=== PATIENT | female | born 1975 | race Caucasian/White ===

== ENCOUNTER 2016-09-05 11:17 | Emergency (ER) | payer OTHER ==
--- NOTE | 2016-09-05 11:56 | ER Document Report ---
ED Medical Screen (RME) - General Stated Complaint: CHEST/SINUS CONGESTION Mode of Arrival: Ambulatory Information source: Patient Notes: 41-year-old female presents to the emergency department complaining of cough and congestion. Denies fever, difficulty breathing or swallowing. TRAVEL OUTSIDE OF THE [place] IN LAST 30 DAYS: No - Related Data Allergies/Adverse Reactions: No Known Allergies Allergy (Verified 09/05/16 11:52) Past Medical History - Social History Chew tobacco use (# tins/day): No Frequency of alcohol use: None Drug Abuse: None Renal/ Medical History: Denies: Hx Peritoneal Dialysis Past Surgical History: Reports: Hx Hysterectomy - Immunizations Hx Diphtheria, Pertussis, Tetanus Vaccination: Yes Physical Exam - Vital signs Vitals: Temp Pulse BP Pulse Ox 98.0 F 68 122/85 98 09/05/16 11:43 09/05/16 11:43 09/05/16 11:43 09/05/16 11:43 - General General appearance: Appears well, Alert In distress: None - Respiratory Respiratory status: No respiratory distress Breath sounds: Normal Course - Vital Signs Vital signs: Temp Pulse Resp BP Pulse Ox 98.0 F 68 122/85 98 09/05/16 11:43 09/05/16 11:43 09/05/16 11:43 09/05/16 11:43
--- NOTE | 2016-09-05 12:13 | ER Document Report ---
HPI - HPI Patient complains to provider of: cold symptoms and right elbow pain Onset: Other - 4 days Onset/Duration: Gradual Pain Level: 3 Context: 41-year-old nonsmoking female complaining of right elbow pain since doing a lot of pushups because she is trying to get in the [employer]. Also she is complaining of head congestion and cough in the morning for 4 days. No fever or chills. No nausea vomiting or diarrhea. No chest pain or shortness of breath. No abdominal pain. Associated Symptoms: None Exacerbated by: Other - The elbow area hurts more with pushups Relieved by: Denies - ROS ROS below otherwise negative: Yes Systems Reviewed and Negative: Yes All other systems reviewed and negative - REPRODUCTIVE Reproductive: DENIES: : - DERM Skin Color: Normal Past Medical History - General Information source: Patient - Social History Smoking Status: Never Smoker Chew tobacco use (# tins/day): No Frequency of alcohol use: None Drug Abuse: None Family History: Reviewed & Not Pertinent Patient has suicidal ideation: No Patient has homicidal ideation: No - Medical History Medical History: Negative Renal/ Medical History: Denies: Hx Peritoneal Dialysis Surgical Hx: Negative Past Surgical History: Reports: Hx Hysterectomy - Immunizations Hx Diphtheria, Pertussis, Tetanus Vaccination: Yes Vertical Provider Document - CONSTITUTIONAL Agree With Documented VS: Yes Exam Limitations: No Limitations - INFECTION CONTROL TRAVEL OUTSIDE OF THE [place] IN LAST 30 DAYS: No - HEENT HEENT: Normocephalic, PERRLA, Pharyngeal Erythema - Minimal. negative: Conjuctival Injection, Tympanic Membrane Red, Tympanic Membrane Bulging - NECK Neck: Supple. negative: Lymphadenopathy-Left, Lymphadenopathy-Right - RESPIRATORY Respiratory: Breath Sounds Normal, No Respiratory Distress O2 Sat by Pulse Oximetry: 98 - CARDIOVASCULAR Cardiovascular: Regular Rate, Regular Rhythm - GI/ABDOMEN Gastrointestinal: Abdomen Soft, Abdomen Non-Tender, No Organomegaly - BACK Back: Normal Inspection - MUSCULOSKELETAL/EXTREMETIES Musculoskeletal/Extremeties: MAEW, FROM, Tender - Tricep tendon at the medial elbow - NEURO Level of Consciousness: Awake, Alert Motor/Sensory: No Motor Deficit, No Sensory Deficit - DERM Integumentary: Warm, Dry, No Rash Course - Vital Signs Vital signs: Temp Pulse Resp BP Pulse Ox 98.0 F 68 122/85 98 09/05/16 11:43 09/05/16 11:43 09/05/16 11:43 09/05/16 11:43 Discharge - Discharge Clinical Impression: Tendonitis Upper respiratory infection Qualifiers: URI type: unspecified viral URI Qualified Code(s): J06.9 - Acute upper respiratory infection, unspecified; B97.89 - Other viral agents as the cause of diseases classified elsewhere Condition: Good Disposition: HOME, SELF-CARE Instructions: Acetaminophen, Upper Respiratory Illness ([facility]), Tendonitis ([facility]) , Anti-Inflammatory Medication ([facility]) Additional Instructions: Coolmist humidifier, wash it daily Elbow strap from pharmacy may help Rest Motrin for the tendon inflammation Return to the emergency room if worse Please complete the patient satisfaction survey if you get one, and return it.. If you do not receive a survey, then you can go to the [facility] website, [email or web address] and place your comments about your very good care. Thank you very much. It was a pleasure being your medical provider today. Prescriptions: Ibuprofen [Motrin 800 mg Tablet] 800 mg PO Q8HP PRN #30 tablet PRN Reason:
[2016-09-05 12:31] VITALS: BP 120/80
== END 2016-09-05 12:27 | disposition home or self-care (01) ==
LOC: ER 11:17
DX: J06.9 Acute upper respiratory infection, unspecified (principal); B97.89 Other viral agents as the cause of diseases classified elsewhere; M77.9 Enthesopathy, unspecified; M25.521 Pain in right elbow; R05 Cough
CPT/HCPCS: 99283

== ENCOUNTER 2019-01-20 17:39 | Observation (INO) | payer OTHER ==
[2019-01-20] MEDS ORDERED: ONDANSETRON 4 MG TAB.RAPDIS PO ONE (19:00)
--- NOTE | 2019-01-20 19:00 | ER Document Report ---
ED Medical Screen (RME) - General Chief Complaint: Abdominal Pain Stated Complaint: ABDOMINAL PAIN/NAUSEA Time Seen by Provider: 01/20/19 18:58 Mode of Arrival: Ambulatory Information source: Patient Notes: Patient is a 43-year-old female presents the emergency department with upper abdominal pain that is been ongoing for approximately 4 days. She reports severe nausea with this but denies any vomiting or diarrhea. Patient reports she has been taking Pepto-Bismol which has provided some mild relief but has now turned her stools dark. She denies any blood in her stools. Patient does not believe she has had a fever. Exam: Tenderness to palpation to upper abdomen/epigastric area. I have greeted and performed a rapid initial assessment of this patient. A comprehensive ED assessment and evaluation of the patient, analysis of test results and completion of the medical decision making process will be conducted by additional ED providers. Dictation of this chart was performed using voice recognition software; therefore, there may be some unintended grammatical errors. TRAVEL OUTSIDE OF THE [place] IN LAST 30 DAYS: No - Related Data Allergies/Adverse Reactions: No Known Allergies Allergy (Verified 01/20/19 18:09) Past Medical History Renal/ Medical History: Denies: Hx Peritoneal Dialysis Past Surgical History: Reports: Hx Hysterectomy - Immunizations Hx Diphtheria, Pertussis, Tetanus Vaccination: Yes Physical Exam - Vital signs Vitals: Temp Pulse Resp BP Pulse Ox 98.0 F 80 18 130/96 H 99 01/20/19 18:57 01/20/19 18:57 01/20/19 18:57 01/20/19 18:57 01/20/19 18:57 Course - Vital Signs Vital signs: Temp Pulse Resp BP Pulse Ox 98.0 F 80 18 130/96 H 99 01/20/19 18:57 01/20/19 18:57 01/20/19 18:57 01/20/19 18:57 01/20/19 18:57
--- NOTE | 2019-01-20 19:40 | RADIOLOGY REPORT (SQ) ---
EXAM DESCRIPTION: KUB/ABDOMEN (SINGLE VIEW) COMPLETED DATE/TIME: 01/20/2019 7:19 pm REASON FOR STUDY: abd pain COMPARISON: None. NUMBER OF VIEWS: One view. TECHNIQUE: Supine radiographic image of the abdomen acquired. LIMITATIONS: None. FINDINGS: BOWEL GAS PATTERN: Normal bowel gas pattern. No dilated loops. CALCIFICATIONS: No suspicious calcifications. SOFT TISSUES: No gross mass or suggestion of organomegaly. HARDWARE: BTL clips. BONES: No acute fracture. No worrisome bone lesions. OTHER: No other significant finding. IMPRESSION: NO RADIOGRAPHIC EVIDENCE FOR ACUTE ABDOMINAL DISEASE. TECHNICAL DOCUMENTATION: JOB ID: [id number] [employer]- All Rights Reserved Reading location - IP/workstation name: [email or web address]
[2019-01-20 20:56] LABS: ABSOLUTE BASOPHILS # (AUTO) 0.1 10^3/uL (0.0-0.2); ABSOLUTE MONOCYTES (AUTO) 0.7 10^3/uL (0.1-1.4); BASOPHILS % (AUTO) 0.7 % (0-2); HEMOGLOBIN 12.9 g/dL (12.0-15.5); RED CELL DISTRIBUTION WIDTH 13.7 % (11.5-14.0); TOTAL CELLS COUNTED % (AUTO) 100 %
[2019-01-20 21:03] LABS: APPEARANCE,URINE CLEAR; BILIRUBIN,URINE NEGATIVE (NEGATIVE); COLOR,URINE STRAW; GLUCOSE, URINE NEGATIVE (NEGATIVE); KETONES,URINE NEGATIVE (NEGATIVE); LEUKOCYTE ESTERASE,URINE NEGATIVE (NEGATIVE); NITRITE,URINE NEGATIVE (NEGATIVE); PROTEIN,URINE NEGATIVE (NEGATIVE); URINE SPECIFIC GRAVITY 1.004; UROBILINOGEN,URINE NEGATIVE mg/dL (<2.0)
[2019-01-20 21:04] LABS: ABSOLUTE EOSINOPHILS # (AUTO) 0.2 10^3/uL (0.0-0.6); ABSOLUTE LYMPHOCYTES (AUTO) 3.4 10^3/uL (0.5-4.7); EOSINOPHILS % (AUTO) 1.4 % (0-6); HEMATOCRIT 37.8 % (36.0-47.0); LYMPHOCYTES % (AUTO) 29.9 % (13-45); MEAN CORPUSCULAR HEMOGLOBIN 29.4 pg (27.0-33.4); MEAN CORPUSCULAR HGB CONC 34.1 g/dL (32.0-36.0); MEAN CORPUSCULAR VOLUME 86 fl (80-97); MONOCYTES % (AUTO) 6.2 % (3-13); PLATELET COUNT 355 10^3/uL (150-450); RED BLOOD COUNT 4.38 10^6/uL (3.72-5.28); SEGMENTED NEUTROPHILS % (AUTO) 61.8 % (42-78); WHITE BLOOD COUNT 11.4 10^3/uL (4.0-10.5)
[2019-01-20 21:23] LABS: ALANINE AMINOTRANSFERASE 30 U/L (9-52); ALBUMIN 4.3 g/dL (3.5-5.0); ALKALINE PHOSPHATASE 69 U/L (38-126); ANION GAP 11 (5-19); ASPARTATE AMINO TRANSFERASE 24 U/L (14-36); BILIRUBIN,DIRECT 0.2 mg/dL (0.0-0.4); BILIRUBIN,TOTAL 0.6 mg/dL (0.2-1.3); BLOOD UREA NITROGEN 5 mg/dL (7-20); CALCIUM 10.3 mg/dL (8.4-10.2); CARBON DIOXIDE 26 mmol/L (22-30); CHLORIDE 102 mmol/L (98-107); GLUCOSE 92 mg/dL (75-110); POTASSIUM 3.9 mmol/L (3.6-5.0); SODIUM 138.9 mmol/L (137-145); TOTAL PROTEIN 7.5 g/dL (6.3-8.2)
--- NOTE | 2019-01-21 01:36 | ER Document Report ---
ED GI/ - General Chief Complaint: Abdominal Pain Stated Complaint: ABDOMINAL PAIN/NAUSEA Time Seen by Provider: 01/20/19 18:58 Primary Care Provider: KATELYNN OVALLES MD [Primary Care Provider] - Follow up as needed Mode of Arrival: Ambulatory Notes: This is a 43-year-old female patient emergency department chief complaint epigastric and right upper quadrant pain. Symptoms have been present on and off for about 2 days. Got worse today after eating. No prior history of gallstones. Has a burning sensation in the epigastric and right upper quadrant region. No fever. Some nausea but that has since resolved. Denies any black tarry stools but does state her stool is dark because she has been "drinking Pepto like crazy". TRAVEL OUTSIDE OF THE [place] IN LAST 30 DAYS: No - HPI Patient complains to provider of: Abdominal pain Quality of pain: Achy Severity at maximum: Moderate Severity in ED: Moderate Pain Level: 3 - Related Data Allergies/Adverse Reactions: No Known Allergies Allergy (Verified 01/20/19 18:09) Past Medical History - General Information source: Patient - Social History Smoking Status: Never Smoker Frequency of alcohol use: None Drug Abuse: None Lives with: Family Family History: Reviewed & Not Pertinent Patient has suicidal ideation: No Patient has homicidal ideation: No - Medical History Medical History: Negative Renal/ Medical History: Denies: Hx Peritoneal Dialysis Past Surgical History: Reports: Hx Hysterectomy - Immunizations Hx Diphtheria, Pertussis, Tetanus Vaccination: Yes Review of Systems - Review of Systems Notes: Constitutional: denies: Chills, Diaphoresis, Fever, Malaise, Weakness EENT: denies: Eye discharge, Blurred vision, Tearing, Double vision, Nose congestion, Nose discharge, Throat swelling, Mouth pain Cardiovascular: denies: Palpitations, Heart racing, Orthopnea, Dyspnea, Chest pain Respiratory: denies: Cough, Hurts to breathe, Wheezing, Shortness of breath Gastrointestinal: Planing of epigastric and right upper quadrant abdominal pain with nausea. Genitourinary: denies: Burning, Dysuria, Discharge, Frequency, Flank pain, Hematuria Musculoskeletal: denies: Joint pain, Joint swelling, Muscle pain, Muscle stiffness, back pain Hematologic/Lymphatic: denies: Anemia, Easy bleeding, Easy bruising, Blood clots Neurological/Psychological: denies: Confusion, Dementia, Depression, Loss of consciousness Skin: No lesions, no masses, no skin breakdown, no abscesses Physical Exam - Vital signs Vitals: Temp Pulse Resp BP Pulse Ox 98.0 F 80 18 130/96 H 99 01/20/19 18:57 01/20/19 18:57 01/20/19 18:57 01/20/19 18:57 01/20/19 18:57 Interpretation: Normal - General General appearance: Appears well, Alert - HEENT Head: Normocephalic, Atraumatic Eyes: Normal Pupils: PERRL - Respiratory Respiratory status: No respiratory distress Chest status: Nontender Breath sounds: Normal Chest palpation: Normal - Cardiovascular Rhythm: Regular Heart sounds: Normal auscultation Murmur: No - Abdominal Inspection: Normal Distension: No distension Bowel sounds: Normal Tenderness: Tender - Or tenderness to palpation in the epigastric and right upper quadrant region without guarding or rebound. Organomegaly: No organomegaly - Back Back: Normal, Nontender - Extremities General upper extremity: Normal inspection, Nontender, Normal color, Normal ROM, Normal temperature General lower extremity: Normal inspection, Nontender, Normal color, Normal ROM, Normal temperature, Normal weight bearing. No: Leonid's sign - Neurological Neuro grossly intact: Yes Cognition: Normal Orientation: AAOx4 [place] Coma Scale Eye Opening: Spontaneous Idalmis Coma Scale Verbal: Oriented [place] Coma Scale Motor: Obeys Commands [place] Coma Scale Total: 15 Speech: Normal Motor strength normal: LUE, RUE, LLE, RLE Sensory: Normal - Psychological Associated symptoms: Normal affect, Normal mood - Skin Skin Temperature: Warm Skin Moisture: Dry Skin Color: Normal Course - Re-evaluation Re-evalutation: 01/21/19 01:34 Laboratory 01/20/19 01/20/19 01/20/19 20:30 20:30 20:30 WBC 11.4 H RBC 4.38 Hgb 12.9 Hct 37.8 MCV 86 MCH 29.4 MCHC 34.1 RDW 13.7 Plt Count 355 Seg Neutrophils % 61.8 Lymphocytes % 29.9 Monocytes % 6.2 Eosinophils % 1.4 Basophils % 0.7 Absolute Neutrophils 7.0 Absolute Lymphocytes 3.4 Absolute Monocytes 0.7 Absolute Eosinophils 0.2 Absolute Basophils 0.1 Sodium 138.9 Potassium 3.9 Chloride 102 Carbon Dioxide 26 Anion Gap 11 BUN 5 L Creatinine 0.63 Est GFR ( Amer) > 60 Est GFR (Non-Af Amer) > 60 Glucose 92 Calcium 10.3 H Total Bilirubin 0.6 Direct Bilirubin 0.2 Neonat Total Bilirubin Not Reportable Neonat Direct Bilirubin Not Reportable Neonat Indirect Bili Not Reportable AST 24 ALT 30 Alkaline Phosphatase 69 Total Protein 7.5 Albumin 4.3 Lipase 154.0 Urine Color STRAW Urine Appearance CLEAR Urine pH 7.0 Ur Specific Stry[place] 1.004 Urine Protein NEGATIVE Urine Glucose (UA) NEGATIVE Urine Ketones NEGATIVE Urine Blood SMALL H Urine Nitrite NEGATIVE Urine Bilirubin NEGATIVE Urine Urobilinogen NEGATIVE Ur Leukocyte Esterase NEGATIVE Urine WBC (Auto) 1 Urine RBC (Auto) 0 Squamous Epi Cells Auto 1 Urine Mucus (Auto) RARE Urine Ascorbic Acid NEGATIVE 01/21/19 02:17 KUB X-Ray 01/20/19 19:00 IMPRESSION: NO RADIOGRAPHIC EVIDENCE FOR ACUTE ABDOMINAL DISEASE. Abdomen Ultrasound 01/21/19 00:51 IMPRESSION: Cholelithiasis. Positive sonographic Warren sign was elicited although there was no gallbladder wall thickening or pericholecystic fluid. If there is concern for acute cholecystitis, a nuclear medicine scan evaluation. copyright 2010 [employer]- All Rights Reserved This patient has a positive sonographic Warren's and tenderness in the right upper quadrant with a gallstone in the neck of the gallbladder but no immediate evidence of cholecystitis. Patient more than likely will need her gallbladder out. Patient does state that everyone in her family has had her gallbladder out. At this time I have consulted with the surgeon on-call, Dr. Vega. Will admit her to the hospital and plan for cholecystectomy. 01/21/19 02:22 - Vital Signs Vital signs: Temp Pulse Resp BP Pulse Ox 98.2 F 69 16 134/86 H 98 01/21/19 02:05 01/21/19 02:05 01/21/19 02:05 01/21/19 02:05 01/21/19 02:05 - Laboratory Result Diagrams: 01/20/19 20:30 01/20/19 20:30 Laboratory results interpreted by me: 01/20/19 01/20/19 01/20/19 20:30 20:30 20:30 WBC 11.4 H BUN 5 L Calcium 10.3 H Urine Blood SMALL H Discharge - Discharge Clinical Impression: Acute cholecystitis Condition: Good Disposition: ADMITTED INPATIENT Admitting Provider: Surgicalist - [facility] Admitted: Surgical Floor Referrals: KATELYNN OVALLES MD [Primary Care Provider] - Follow up as needed
[2019-01-21] MEDS ORDERED: NORMAL SALINE 1000 ML 1,000 ML IV ONE (01:40)
--- NOTE | 2019-01-21 02:07 | RADIOLOGY REPORT (SQ) ---
EXAM DESCRIPTION: US ABDOMEN LIMITED COMPLETED DATE/TME: 01/21/2019 00:51 CLINICAL HISTORY: 43 years, Female, ruq and epigatric pain COMPARISON: None. TECHNIQUE: Grayscale and color images of the abdomen were obtained LIMITATIONS: None. FINDINGS: The visualized portions of the pancreas, IVC, and abdominal aorta appear unremarkable. The liver is normal in size, shape, and echotexture. The liver measures 14.0 cm. The main portal vein demonstrates normal hepatopedal flow. There is a gallstone noted within the gallbladder neck. There is no wall thickening or pericholecystic fluid. A positive sonographic Warren sign was elicited. The common bile duct is normal caliber measuring up to 4 mm in diameter. The right kidney measures 10.8 x 4.2 x 4.2 cm. No hydronephrosis. IMPRESSION: Cholelithiasis. Positive sonographic Warren sign was elicited although there was no gallbladder wall thickening or pericholecystic fluid. If there is concern for acute cholecystitis, a nuclear medicine scan evaluation. copyright 2010 [employer]- All Rights Reserved
[2019-01-21] MEDS ORDERED: ONDANSETRON HCL INJ/PF 4 MG/2 ML SDV IV ONE (02:17)
[2019-01-21] MEDS ORDERED: HYDROMORPHONE HCL INJ/PF 2 MG/ML AMPULE IV ONE (02:17)
[2019-01-21] MEDS ORDERED: DEXTROSE 5%-LACTATED RINGERS 1,000 ML IV PRN (02:26)
[2019-01-21] MEDS ORDERED: ONDANSETRON HCL INJ/PF 4 MG/2 ML SDV IV PRN ×2 (02:26→12:01)
[2019-01-21] MEDS ORDERED: MORPHINE SULFATE 10 MG/ML INJ IV PRN ×2 (02:26→12:01)
[2019-01-21] MEDS ORDERED: PIPERACILLIN/TAZOBACTAM 3.375 GM VIAL IV PRN (02:30)
[2019-01-21] MEDS: PIPERACILLIN SODIUM/TAZOBACTAM 3.375 GM in NORMAL SALINE 100 ML IV SCH ×4 (03:09→22:07)
--- NOTE | 2019-01-21 06:14 | PDOC H&P ---
History of Present Illness Admission Date/PCP: 01/21/19 02:40 KATELYNN OVALLES MD Patient complains of: Right upper quadrant pain History of Present Illness: LELO GOODEN is a 43 year old female with a 2-day history of right upper quadrant pain. It is dull and aching. It is 10 out of 10 at its worst. The pain was brought on by eating a grilled steak. Since that time she has had discomfort in the right upper quadrant. It waxes and wanes with eating. Dilaudid makes her pain better, eating makes it worse. The pain radiates around her back and into her shoulder blade. She has had nausea and vomiting. She denies chest pain, shortness of breath, headache, fevers, chills, melena, hematochezia, hematemesis, blurry vision, orthostasis, dizziness. Past Medical History Medical History: None Past Surgical History Past Surgical History: Reports: Hysterectomy Social History Lives with: Family Smoking Status: Never Smoker Frequency of Alcohol Use: None Hx Recreational Drug Use: No Drugs: None Hx Prescription Drug Abuse: No Family History Family History: Reviewed & Not Pertinent Parental Family History Reviewed: Yes Children Family History Reviewed: Yes Sibling(s) Family History Reviewed.: Yes Medication/Allergy Home Medications: No Home Medications 08/23/11 Albuterol PRN 08/28/11 Cephalexin Monohydrate [Keflex 500 mg Capsule] 500 mg PO BID #20 capsule 03/26/13 Sulfamethoxazole/Trimethoprim [Septra-DS 800/160 mg Tablet] 1 tab PO BID #20 tablet 03/26/13 Ibuprofen [Motrin 800 mg Tablet] 800 mg PO Q8HP PRN #30 tablet 09/05/16 Allergies/Adverse Reactions: No Known Allergies Allergy (Verified 01/20/19 18:09) Review of Systems Constitutional: PRESENT: anorexia. ABSENT: chills, fatigue, fever(s), headache(s) Eyes: ABSENT: visual disturbances Ears: ABSENT: hearing changes Nose, Mouth, and Throat: ABSENT: sore throat Cardiovascular: ABSENT: chest pain Respiratory: ABSENT: cough, dyspnea Gastrointestinal: PRESENT: abdominal pain, nausea, vomiting. ABSENT: hematemesis, hematochezia, melena Genitourinary: ABSENT: dysuria Musculoskeletal: PRESENT: back pain Integumentary: ABSENT: pruritus, rash Neurological: ABSENT: confusion, convulsions, dizziness Psychiatric: ABSENT: anxiety, depression Endocrine: ABSENT: cold intolerance, heat intolerance Hematologic/Lymphatic: ABSENT: easy bleeding, easy bruising Physical Exam Vital Signs: Temp Pulse Resp BP Pulse Ox 98.5 F 67 18 132/75 H 99 01/21/19 05:15 01/21/19 05:15 01/21/19 05:15 01/21/19 05:15 01/21/19 05:15 Intake & Output 01/19/19 01/20/19 01/21/19 06:59 06:59 06:59 Intake Total 1100 Balance 1100 Weight 91.1 kg General appearance: PRESENT: obese Eye exam: PRESENT: EOMI, PERRLA. ABSENT: scleral icterus Mouth exam: PRESENT: moist, neck supple Teeth exam: ABSENT: poor dentation Neck exam: ABSENT: meningismus, tenderness, thyromegaly, tracheal deviation Respiratory exam: PRESENT: clear to auscultation maria victoria, unlabored. ABSENT: chest wall tenderness, tachypnea, wheezes Cardiovascular exam: PRESENT: RRR Pulses: PRESENT: normal radial pulses Vascular exam: PRESENT: normal capillary refill. ABSENT: pallor GI/Abdominal exam: PRESENT: soft, tenderness - Right upper quadrant/epigastrium. ABSENT: distended, guarding Rectal exam: PRESENT: deferred Extremities exam: ABSENT: clubbing Musculoskeletal exam: ABSENT: deformity Neurological exam: PRESENT: alert, awake, oriented to person, oriented to place, oriented to time, oriented to situation, CN II-XII grossly intact. ABSENT: motor sensory deficit Psychiatric exam: ABSENT: agitated, anxious, depressed Focused psych exam: ABSENT: delusional Skin exam: ABSENT: cyanosis, erythema, jaundice Results Laboratory Results: 01/20/19 20:30 01/20/19 20:30 01/20/19 01/20/19 01/20/19 20:30 20:30 20:30 WBC 11.4 H RBC 4.38 Hgb 12.9 Hct 37.8 MCV 86 MCH 29.4 MCHC 34.1 RDW 13.7 Plt Count 355 Seg Neutrophils % 61.8 Lymphocytes % 29.9 Monocytes % 6.2 Eosinophils % 1.4 Basophils % 0.7 Absolute Neutrophils 7.0 Absolute Lymphocytes 3.4 Absolute Monocytes 0.7 Absolute Eosinophils 0.2 Absolute Basophils 0.1 Sodium 138.9 Potassium 3.9 Chloride 102 Carbon Dioxide 26 Anion Gap 11 BUN 5 L Creatinine 0.63 Est GFR ( Amer) > 60 Est GFR (Non-Af Amer) > 60 Glucose 92 Calcium 10.3 H Total Bilirubin 0.6 AST 24 ALT 30 Alkaline Phosphatase 69 Total Protein 7.5 Albumin 4.3 Lipase 154.0 Urine Color STRAW Urine Appearance CLEAR Urine pH 7.0 Ur Specific [place] 1.004 Urine Protein NEGATIVE Urine Glucose (UA) NEGATIVE Urine Ketones NEGATIVE Urine Blood SMALL H Urine Nitrite NEGATIVE Ur Leukocyte Esterase NEGATIVE Urine WBC (Auto) 1 Urine RBC (Auto) 0 Impressions: KUB X-Ray 01/20/19 19:00 IMPRESSION: NO RADIOGRAPHIC EVIDENCE FOR ACUTE ABDOMINAL DISEASE. Abdomen Ultrasound 01/21/19 00:51 IMPRESSION: Cholelithiasis. Positive sonographic Warren sign was elicited although there was no gallbladder wall thickening or pericholecystic fluid. If there is concern for acute cholecystitis, a nuclear medicine scan evaluation. copyright 2010 [employer]- All Rights Reserved Assessment & Plan - Diagnosis (1) Acute cholecystitis Is this a current diagnosis for this admission?: Yes - Plan Summary Plan Summary: This is a patient with unrelenting right upper quadrant pain, gallstones, and fatty food intolerance. I believe the patient is experiencing early acute cholecystitis. I will admit her to the hospital, start IV antibiotics, and plan for surgery in the next 12 to 24 hours. Start Zosyn. Surgery has been discussed with her at length. Risks/benefits discussed, informed consent obtained, and all questions answered.
[2019-01-21] MEDS ORDERED: BUPIVACAINE HCL 0.25% /EPINEPHRINE INJ/PF 30 ML SDV ONE (08:39)
[2019-01-21] MEDS ORDERED: KETOROLAC TROMETHAMINE INJ/PF 30 MG/1 ML SDV ONE (10:17)
[2019-01-21] MEDS ORDERED: KETOROLAC TROMETHAMINE INJ/PF 30 MG/1 ML SDV IV PRN (11:03)
[2019-01-21] MEDS ORDERED: FENTANYL CITRATE INJ/PF 100 MCG/2 ML AMPUL IV PRN ×2 (12:01)
[2019-01-21] MEDS ORDERED: MEPERIDINE HCL/PF INJ 25 MG/1 ML DISP.SYRIN IV PRN (12:01)
[2019-01-21] MEDS ORDERED: DIPHENHYDRAMINE HCL 50 MG/ML VIAL IV PRN (12:01)
[2019-01-21] MEDS ORDERED: OXYCODONE-ACETAMINOPHEN 5-325 MG TABLET PO PRN ×2 (12:01)
[2019-01-21] MEDS ORDERED: PROMETHAZINE HCL INJ 25 MG/1 ML VIAL IV PRN (12:01)
[2019-01-21] MEDS ORDERED: ONDANSETRON HCL INJ/PF 4 MG/2 ML SDV ONE (14:05)
[2019-01-21] MEDS ORDERED: FENTANYL CITRATE INJ/PF 100 MCG/2 ML AMPUL ONE (14:20)
[2019-01-21] MEDS: FENTANYL CITRATE INJ/PF 100 MCG/2 ML AMPUL IV PRN ×2 (14:22→14:47)
--- NOTE | 2019-01-21 14:29 | OPERATIVE REPORT E ---
Operative Report NAME: LELO GOODEN : 1975 AGE: 43Y DATE OF SURGERY: 01/21/2019 ROOM: 212 PREOPERATIVE DIAGNOSES: 1. ACUTE CHOLECYSTITIS. 2. CHOLELITHIASIS. POSTOPERATIVE DIAGNOSES: 1. ACUTE CHOLECYSTITIS. 2. CHOLELITHIASIS. OPERATION: LAPAROSCOPIC CHOLECYSTECTOMY. SURGEON: ARPITA BARR M.D. ANESTHESIA: General. INDICATION: This is a 43-year-old female with right upper quadrant pains and went to the ED, where an ultrasound of the gallbladder showed a gallstone. She is markedly tender in the right upper quadrant. PROCEDURE: After adequate general anesthesia, the patient is placed in supine position and the abdomen prepped and draped in the usual sterile fashion. Appropriate timeout was then called. Next, an infraumbilical incision was made and the fascia identified, divided, and Jacquelyn trocar inserted through the fascia of the abdominal cavity. Camera was then inserted and CO2 insufflated. Three added trocars were placed, 12 mm in the subxiphoid area and two 5 mm in the right upper quadrant. The gallbladder was then identified and noted to be markedly distended. With a long needle, the gallbladder was decompressed. However, the secretion was so thick and whitish, some of the gallbladder contents spilled into the abdominal cavity. Most of the spillage was then suctioned out. Next, a grasper was placed on the tip of the gallbladder and pushed up on the liver. The gallbladder also was noted to be somewhat intrahepatic. Next, adhesions from the omentum were then lysed manually. The infundibulum was then identified and subsequently grasped. The cystic duct was then dissected and noted to be normal or just slightly enlarged. The cystic artery also was identified, and after the angle of safety was visualized, the cystic duct was then clipped, two clips proximally and one clip distally and divided between the distal clips. The cystic artery also was clipped proximally and divided with the use of harmonic isabel. The gallbladder was then taken off the liver bed with the aid of harmonic isabel. Gallbladder was then completely removed and placed in an Endobag and pulled out through the umbilical port. There was palpable at least 2 cm stone and the gallbladder wall thickened. Next, the Jacquelyn trocar was inserted back into the fascia into the abdominal cavity, and camera reinserted. Next, the liver bed was inspected and there was some oozing in the mid part of the liver bed, and this was controlled with cautery. Practically all the bleeding was controlled. The area was then irrigated with saline solution, and no further bleeding noted. A piece of Surgicel was placed over the liver bed to make sure of the hemostasis. Following this, all the trocars were removed and CO2 allowed to come out through the trocar sites. No other gross abnormality noted around the liver. The fascial defect of the infraumbilical area was closed in a [id number] suture using 0 Vicryl. 2-0 Vicryl stay sutures on each side were then tied together for better closure. Local anesthesia infiltrated over the fascia and over the incision sites. The incisions were then closed with running subcuticular 4-0 Vicryl undyed. Steri-Strips were placed over the operative sites. Needle, instrument, and sponge count were all correct. Estimated blood loss was about 10 mL. The patient was then brought to the recovery room, extubated, in satisfactory condition. DICTATING PHYSICIAN: ARPITA BARR M.D. [id number] PHY#: [id number] ID: [id number] JOB#: [id number] ACCT: [id number] cc:ARPITA BARR M.D. >
[2019-01-21] MEDS ORDERED: SCOPOLAMINE HYDROBROMIDE 1.5 MG PATCH.TD72 ONE (14:40)
[2019-01-21] MEDS ORDERED: METOCLOPRAMIDE HCL INJ/PF 10 MG/2 ML SDV ONE (14:40)
[2019-01-21] MEDS ORDERED: DIPHENHYDRAMINE HCL 50 MG/ML VIAL ONE (14:48)
[2019-01-21] MEDS ORDERED: NEOSTIGMINE METHYLSULFATE 10 MG/10 ML VIAL ONE (16:09)
[2019-01-21] MEDS ORDERED: LIDOCAINE 2% INJ-PF (20 MG/ML) 2 ML AMPUL ONE (16:09)
[2019-01-21] MEDS ORDERED: SUCCINYLCHOLINE CHLORIDE INJ 200 MG/10 ML VIAL ONE (16:09)
[2019-01-21] MEDS ORDERED: GLYCOPYRROLATE 1 MG/5 ML VIAL ONE (16:09)
[2019-01-21] MEDS: NORMAL SALINE 1000 ML 1,000 ML IV PRN (16:11)
[2019-01-21] MEDS: KETOROLAC TROMETHAMINE INJ/PF 30 MG/1 ML SDV IV SCH ×2 (17:39→23:38)
[2019-01-22] MEDS: PIPERACILLIN SODIUM/TAZOBACTAM 3.375 GM in NORMAL SALINE 100 ML IV SCH (02:38)
[2019-01-22] MEDS: NORMAL SALINE 1000 ML 1,000 ML IV PRN (02:38)
[2019-01-22] MEDS: KETOROLAC TROMETHAMINE INJ/PF 30 MG/1 ML SDV IV SCH (05:16)
[2019-01-22 07:05] LABS: ABSOLUTE LYMPHOCYTES (AUTO) 1.9 10^3/uL (0.5-4.7); ABSOLUTE MONOCYTES (AUTO) 0.6 10^3/uL (0.1-1.4); ABSOLUTE NEUT (AUTO) 8.9 10^3/uL (1.7-8.2); BASOPHILS % (AUTO) 0.3 % (0-2); EOSINOPHILS % (AUTO) 0.1 % (0-6); HEMATOCRIT 32.2 % (36.0-47.0); HEMOGLOBIN 10.9 g/dL (12.0-15.5); LYMPHOCYTES % (AUTO) 16.9 % (13-45); MEAN CORPUSCULAR HEMOGLOBIN 29.5 pg (27.0-33.4); MEAN CORPUSCULAR HGB CONC 33.9 g/dL (32.0-36.0); MEAN CORPUSCULAR VOLUME 87 fl (80-97); MONOCYTES % (AUTO) 5.5 % (3-13); PLATELET COUNT 282 10^3/uL (150-450); RED CELL DISTRIBUTION WIDTH 13.5 % (11.5-14.0); SEGMENTED NEUTROPHILS % (AUTO) 77.2 % (42-78); TOTAL CELLS COUNTED % (AUTO) 100 %; WHITE BLOOD COUNT 11.6 10^3/uL (4.0-10.5)
[2019-01-22 07:23] LABS: ALANINE AMINOTRANSFERASE 40 U/L (9-52); ALBUMIN 3.2 g/dL (3.5-5.0); ALKALINE PHOSPHATASE 53 U/L (38-126); ANION GAP 9 (5-19); ASPARTATE AMINO TRANSFERASE 33 U/L (14-36); BILIRUBIN,DIRECT 0.2 mg/dL (0.0-0.4); BILIRUBIN,TOTAL 0.8 mg/dL (0.2-1.3); BLOOD UREA NITROGEN 5 mg/dL (7-20); CALCIUM 8.5 mg/dL (8.4-10.2); CARBON DIOXIDE 21 mmol/L (22-30); CHLORIDE 108 mmol/L (98-107); GLUCOSE 87 mg/dL (75-110); POTASSIUM 4.1 mmol/L (3.6-5.0); SODIUM 138.1 mmol/L (137-145); TOTAL PROTEIN 5.6 g/dL (6.3-8.2)
[2019-01-22 07:36] VITALS: BP 136/70
== END 2019-01-22 09:20 | disposition home or self-care (01) ==
LOC: ER 17:39 → INTOOBSV 01-21 02:40 → EH 01-21 02:40 → 2N 01-21 06:10
PROVIDERS: ADMIT Surgery; ATTEND Surgery
PROC: 0FT44ZZ Resection of Gallbladder, Percutaneous Endoscopic Approach (ICD-10-PCS; principal; 2019-01-21 12:30)
DX: K80.12 Calculus of gallbladder with acute and chronic cholecystitis without obstruction (principal); Z90.710 Acquired absence of both cervix and uterus
CPT/HCPCS: 36415; 74018; 76705; 790; 80053; 81001; 83690; 85025; 88304; 99285; G0378; J0330; J1170; J1200; J1885; J2405; J2543; J2710; J2765; J3010; J3490; J7030; J7050; J7121; S0119

== ENCOUNTER 2019-06-26 12:47 | Emergency (ER) | payer OTHER ==
[2019-06-26 13:02] VITALS: BP 146/86
[2019-06-26] MEDS ORDERED: IBUPROFEN 800 MG TABLET PO ONE (13:28)
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
== END 2019-06-26 13:52 | disposition home or self-care (01) ==
LOC: ER 12:47
DX: S16.1XXA Strain of muscle, fascia and tendon at neck level, initial encounter (principal); M79.10 Myalgia, unspecified site; M25.512 Pain in left shoulder; V43.52XA Car driver injured in collision with other type car in traffic accident, initial encounter; Z90.710 Acquired absence of both cervix and uterus
CPT/HCPCS: 99283